=== PATIENT | male | born 1955 | race Caucasian/White ===

== ENCOUNTER 2016-09-17 10:55 | Emergency (ER) | payer OTHER ==
[~2016-09-17] VITALS: Ht 175.3 cm; Wt 109.0 kg
[~2016-09-17 10:55] MED LIST: ASPI1TAB PO; ATOR1TAB21 PO; GLIM4TAB PO; LANTINJ4 SC; OMEP20CA3 PO; VENL75TA3 PO; VITA1CAP40 PO
[2016-09-17] MEDS ORDERED: METF10004 PO (11:07)
[2016-09-17 11:57] LABS: BASO % 0.7 % (0.0-1.0); EOS # 0.2 K/mm3 (0.0-0.50); EOS % 2.6 % (0.0-3.0); LARGE UNSTAINED CELL # 0.2 K/mm3 (0.0-0.4); LARGE UNSTAINED CELL % 3.2 % (0.0-4.0); LYMPH # 3.4 K/mm3 (1.5-4.5); LYMPH % 45.6 % (24.0-44.0); MEAN CORPUSCULAR HEMOGLOBIN 32.8 pg (27.0-33.0); MEAN CORPUSCULAR HGB CONC 34.3 g/dl (32.0-36.5); MEAN CORPUSCULAR VOLUME 95.6 fl (80.0-96.0); MONO # 0.5 K/mm3 (0.0-0.8); MONO % 5.9 % (0.0-5.0); NEUTROPHILS # 3.2 K/mm3 (1.8-7.7); PLATELET COUNT, AUTOMATED 248 k/mm3 (150-450); RED CELL DISTRIBUTION WIDTH 13.1 % (11.5-14.5); WHITE BLOOD COUNT 7.5 K/mm3 (4.0-10.0)
[2016-09-17 12:13] LABS: ALBUMIN/GLOBULIN RATIO 0.95 (1.00-1.93); BILIRUBIN,TOTAL 0.6 MG/DL (0.2-1.0); CALCIUM LEVEL 9.3 MG/DL (8.8-10.2); CREATININE FOR GFR 1.64 MG/DL (0.70-1.30); GLOMERULAR FILTRATION RATE 45.5 (>49); POTASSIUM SERUM 4.6 MEQ/L (3.5-5.1); TOTAL PROTEIN 8.2 GM/DL (6.4-8.2)
[2016-09-17 12:27] LABS: ERYTHROCYTE SEDIMENTATION RATE 4 mm/hr (0-20)
--- NOTE | 2016-09-17 12:29 | REP ---
REASON: Pain and swelling. TECHNIQUE: Multiple ultrasonographic images of the deep venous structures of the thigh were obtained from the common femoral vein to the popliteal vein along with Doppler interrogation and color flow Doppler images. FINDINGS: There is no abnormal echogenic material seen within any of the visualized deep venous structures that would suggest acute thrombosis. Coaptation is unremarkable throughout. Doppler interrogation shows an expected response to respiratory variability and augmentation. The color flow images show what appears to be a normal vascular pattern throughout. IMPRESSION: There is no ultrasonographic evidence of deep venous thrombosis involving any of the visualized deep venous structures of the right thigh, as described above. Signed by Simon Avila DO 09/17/2016 02:33 P
[2016-09-17] MEDS ORDERED: BACT800T5 PO (13:43)
[2016-09-17] MEDS ORDERED: ACET30TAB PO (13:43)
[2016-09-17] MEDS ORDERED: BACTRIM 160MG/800MG DS TAB PO ONE (13:45)
[2016-09-17 13:56] VITALS: BP 149/87
== END 2016-09-17 13:57 | disposition home or self-care (01) ==
LOC: M ED 10:55
DX: L03.115 Cellulitis of right lower limb (principal); Z79.82 Long term (current) use of aspirin; Z79.4 Long term (current) use of insulin; Z79.84 Long term (current) use of oral hypoglycemic drugs; Z79.899 Other long term (current) drug therapy